=== PATIENT | male | born 1965 | race Caucasian/White ===

== ENCOUNTER 2017-10-08 22:19 | Emergency (ER) | payer OTHER ==
[~2017-10-08] VITALS: Ht 180.3 cm; Wt 107.0 kg
[2017-10-08 22:24] VITALS: BP 153/92
[2017-10-08 22:59] LABS: BASOPHILS # (AUTO) 0.03 x10^3/uL (0-0.1); BASOPHILS % (AUTO) 0 % (0-1); EOSINOPHILS # (AUTO) 0.28 x10^3/uL (0-0.4); EOSINOPHILS % (AUTO) 4 % (1-7); LYMPHOCYTES # (AUTO) 1.55 x10^3/uL (1-3.4); LYMPHOCYTES % (AUTO) 20 % (22-44); MD NO; MEAN CORPUSCULAR HEMOGLOBIN 32.1 pg (27.5-34.5); MEAN CORPUSCULAR HGB CONC 34.9 g/dL (33.2-36.2); MEAN PLATELET VOLUME 6.5 fL (7.4-10.4); MONOCYTES # (AUTO) 0.65 x10^3/uL (0.2-0.8); MONOCYTES % (AUTO) 9 % (2-9); NEUTROPHILS # (AUTO) 5.19 x10^3/uL (1.8-6.8); NEUTROPHILS % (AUTO) 67 % (42-75); PLATELET COUNT 202 x10^3/uL (130-400); RED BLOOD COUNT 5.18 x10^6/uL (4.38-5.82); RED CELL DISTRIBUTION WIDTH 13.1 % (9.4-14.8)
[2017-10-08 23:12] LABS: ALBUMIN 4.1 g/dL (3.4-5.0); ANION GAP 7 mmol/L (5-15); CHLORIDE 105 mmol/L (98-107); CREATININE 1.05 mg/dL (0.7-1.3)
[2017-10-08 23:16] LABS: TROPONIN I < 0.015 ng/mL (0.000-0.045)
== END 2017-10-09 00:11 | disposition home or self-care (01) ==
LOC: ED 23:20
DX: I10 Essential (primary) hypertension (principal); E03.4 Atrophy of thyroid (acquired)
CPT/HCPCS: 36415; 80048; 82040; 83735; 84443; 84484; 85025; 93005; 99285

== ENCOUNTER 2017-10-09 21:10 | Emergency (ER) | payer OTHER ==
[~2017-10-09] VITALS: Ht 180.3 cm; Wt 105.7 kg
[2017-10-09 22:53] VITALS: BP 152/76
== END 2017-10-09 22:55 ==
LOC: ED 21:44
DX: R00.2 Palpitations (principal); E03.9 Hypothyroidism, unspecified; I48.91 Unspecified atrial fibrillation
CPT/HCPCS: 93005; 99284

== ENCOUNTER → 2017-11-25 | Outpatient (CLI) | payer OTHER | END | disposition home or self-care (01) | LOC: CFH 13:38 | PROVIDERS: ATTEND Internal Medicine Cardiovascular Disease | DX: R00.2 Palpitations (principal); I10 Essential (primary) hypertension | CPT/HCPCS: 93306 ==